=== PATIENT | male | born 1955 | race Two or more races ===

== ENCOUNTER 2017-08-20 12:44 | Outpatient (CLI) | payer OTHER | END 2017-08-20 14:14 | disposition home or self-care (01) | LOC: RAD 12:44 | DX: M54.6 Pain in thoracic spine (principal); M54.5 Low back pain ==

== ENCOUNTER 2020-07-02 08:15 | Outpatient (CLI) | payer OTHER | END 2020-07-02 15:00 | disposition home or self-care (01) | LOC: LAB 08:15 | PROVIDERS: ATTEND Radiology Diagnostic Radiology | DX: I10 Essential (primary) hypertension (principal) ==

== ENCOUNTER → 2020-07-02 | Outpatient (CLI) | payer OTHER | END | disposition home or self-care (01) | LOC: MRI 08:07 | PROVIDERS: ATTEND Orthopaedic Surgery | DX: M48.02 Spinal stenosis, cervical region (principal); M50.00 Cervical disc disorder with myelopathy, unspecified cervical region; M50.10 Cervical disc disorder with radiculopathy, unspecified cervical region; S46.011A Strain of muscle(s) and tendon(s) of the rotator cuff of right shoulder, initial encounter | CPT/HCPCS: 72156; 73221; A9575 ==

== ENCOUNTER → 2023-10-04 | Outpatient (CLI) | payer OTHER | END | disposition home or self-care (01) | LOC: RAD 10:50 | DX: M54.12 Radiculopathy, cervical region (principal); M15.0 Primary generalized (osteo)arthritis ==

== ENCOUNTER 2024-04-11 11:00 | Outpatient (CLI) | payer OTHER | END 2024-04-14 11:20 | disposition home or self-care (01) | LOC: MRI 11:00 | DX: M54.16 Radiculopathy, lumbar region (principal) | CPT/HCPCS: 72148 ==

== ENCOUNTER 2024-10-27 08:28 | Outpatient (CLI) | payer OTHER | END 2024-10-27 08:35 | disposition home or self-care (01) | LOC: MRI 08:28 | DX: M54.16 Radiculopathy, lumbar region (principal) | CPT/HCPCS: 72148 ==